=== PATIENT | male | born 1935 | race Caucasian/White ===

== ENCOUNTER 2016-11-10 09:50 | Emergency (ER) | payer OTHER ==
[2016-11-10] MEDS ORDERED: LIDOCAINE/EPI 1% MDV 50 ML ONE (16:57)
[2016-11-10] MEDS ORDERED: L.E.T. 3 ML SOLUTION TOPICAL ONE (16:57)
== END 2016-11-10 12:33 | disposition home or self-care (01) ==
LOC: ER 09:50
DX: S39.012A Strain of muscle, fascia and tendon of lower back, initial encounter (principal); X50.0XXA Overexertion from strenuous movement or load, initial encounter; Y92.009 Unspecified place in unspecified non-institutional (private) residence as the place of occurrence of the external cause; Z79.899 Other long term (current) drug therapy; Z79.82 Long term (current) use of aspirin; F17.210 Nicotine dependence, cigarettes, uncomplicated; E03.9 Hypothyroidism, unspecified; I10 Essential (primary) hypertension; Z98.61 Coronary angioplasty status